=== PATIENT | male | born 1970 | race Caucasian/White ===

== ENCOUNTER 2018-08-31 06:05 | Day surgery (SDC) | payer OTHER ==
[~2018-08-31] VITALS: Ht 188 cm; Wt 107.5 kg
[~2018-08-31 06:05] MED LIST: ARNUITY ELLIP100 MCG INH; CELECOXIB100 MG PO; CHLORTHALIDONE25 MG PO; DULOXETINE HCL60 MG PO; FLONASE SENSIM5.9 ML NAS; OMEPRAZOLE20 MG PO; ULTRAM50 MG PO; VENTOLIN HFA18 GM INH; ZYRTEC10 M3 PO
[2018-08-31] MEDS ORDERED: CYMBALTA60 MG PO (06:18)
[2018-08-31] MEDS ORDERED: ASPIRIN325 MG PO (06:26)
[2018-08-31] MEDS ORDERED: ACETAMINOPHEN500 M1 PO (06:26)
[2018-08-31] MEDS ORDERED: ADVIL200 MG NG (06:26)
--- NOTE | 2018-08-31 08:52 | NUR ---
LE 0830 PT RETURNED FROM OR WIDE AWAKE WITH NO C/O'S. REPORT TAKEN FROM CHAYA MONTALVO. VITAL SIGNS TAKEN. IV DC'D. TIP INTACT. PIERREAN OVERSITE. TRANSPORT GUARDS AT BEDSIDE WHILE PT GETTING DRESSED. 0840 DC INSTRUCTIONS GIVEN. ALL QUESTIONS ANSWERED. LEFT VIA W/C WITH GUARDS.
--- NOTE | 2018-09-01 07:50 | OR ---
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 PROCEDURE: Right hip injection under fluoro. ANESTHESIA: Just local. SPECIMENS AND COMPLICATIONS: There were no specimens or complications. WHAT WAS DONE: The patient was taken to the operating room. The fluoroscopy machine was brought in and help us localize the epicenter of the hip joint. The patient was then prepped and draped in a routine sterile fashion. We raised a wheal with 1% xylocaine lateral to the neurovascular bundle. Under fluoroscopic control, we then advanced an 18-gauge spinal needle through the xylocaine wheal and directed it down into the hip. We confirmed in intra-articular location with fluoroscopy and then injected the hip with 8 mL of xylocaine and 2 mL of Depo-Medrol. The needle was withdrawn. A Band-Aid was applied and the patient was awakened and taken back to Day Surgery, where he arrived in stable condition. Counts were correct and the patient was completely comfortable. Dwight Joyner MD WFB/MODL /[id number] Electronically Signed By: DWIGHT JOYNER MD 09/01/18 0750 PATIENT NAME: BAMBI GATES OPERATIVE REPORT DATE OF : 72 REPORT #: [id number] PHYSICIAN: DWIGHT JOYNER MD PCP: EMILIA SALAZAR REPORT IS CONFIDENTIAL AND NOT TO BE RELEASED WITHOUT AUTHORIZATION [facility] [address] [place] [id number] Signed Copies: ~ Electronically Signed By: DWIGHT JOYNER MD 09/01/18 0750 PATIENT NAME: BAMBI GATES OPERATIVE REPORT DATE OF : 72 REPORT #: [id number] PHYSICIAN: DWIGHT JOYNER MD PCP: EMILIA SALAZAR REPORT IS CONFIDENTIAL AND NOT TO BE RELEASED WITHOUT AUTHORIZATION
== END 2018-08-31 08:40 | disposition home or self-care (01) ==
LOC: DS 06:05
PROVIDERS: Orthopaedic Surgery
PROC: 3E0U33Z Introduction of Anti-inflammatory into Joints, Percutaneous Approach (ICD-10-PCS; 2018-08-31)
PROC: BW1CZZZ Fluoroscopy of Lower Extremity (ICD-10-PCS; 2018-08-31)
PROC: 3E0U3BZ Introduction of Anesthetic Agent into Joints, Percutaneous Approach (ICD-10-PCS; principal; 2018-08-31 11:45)
DX: M87.851 Other osteonecrosis, right femur (principal); M16.7 Other unilateral secondary osteoarthritis of hip; Z88.1 Allergy status to other antibiotic agents
CPT/HCPCS: 73501; J3301; J7120

== ENCOUNTER 2019-01-20 05:44 | Day surgery (SDC) | payer OTHER ==
[~2019-01-20] VITALS: Ht 188 cm; Wt 107.5 kg
--- NOTE | ~2019-01-20 | OR ---
[facility] [address] [place], [place] [address] Draft DATE OF OPERATION: 01/20/2019 SURGEON: Dwight Joyner MD PREOPERATIVE DIAGNOSIS: End-stage osteoarthritis/avascular necrosis, right hip. POSTOPERATIVE DIAGNOSIS: End-stage osteoarthritis/avascular necrosis, right hip. PROCEDURE: Steroid injection, right hip, under fluoroscopy. ANESTHESIA: Local. SPECIMENS: None. COMPLICATIONS: None. WHAT WAS DONE: The patient was taken to the operating room. After localization of the hip with fluoroscopy, the patient was prepped and draped in a routine sterile fashion. A small Xylocaine wheal was raised anterolateral to the hip and an anesthetic tract was created down to the hip. Then, under fluoroscopic control, we introduced the spinal needle anterolaterally and directed it into the hip joint. The hip was then injected with 8 mL of 1% plain Xylocaine and 2 mL of Depo-Medrol, which the patient tolerated well. The needle was withdrawn, a Band-Aid was applied, and he was returned to Day Surgery. Documentary fluoroscopic images were saved. Dwight Joyner MD WFB/MODL /[id number] PATIENT NAME: BAMBI GATES OPERATIVE REPORT DATE OF : 72 REPORT #: [id number] PHYSICIAN: DWIGHT JOYNER MD PCP: EMILIA SALAZAR REPORT IS CONFIDENTIAL AND NOT TO BE RELEASED WITHOUT AUTHORIZATION [address] [place] [address] Draft Copies: ~ PATIENT NAME: BAMBI GATES KRYSTIN OPERATIVE REPORT DATE OF : 72 REPORT #: [id number] PHYSICIAN: DWIGHT JOYNER MD PCP: EMILIA SALAZAR REPORT IS CONFIDENTIAL AND NOT TO BE RELEASED WITHOUT AUTHORIZATION
[~2019-01-20 05:44] MED LIST changes: +ACETAMINOPHEN500 M1 PO; +ADVIL200 MG NG; +ASPIRIN325 MG PO; +CYMBALTA60 MG PO
[2019-01-20] MEDS ORDERED: LISINOPRIL10 MG PO (05:53)
--- NOTE | 2019-01-20 07:47 | NUR ---
LE 0735-PT RETURNS FROM OR TO . PT DID NOT RECEIVE ANY ANESTHETICS OR MEDICATIONS. REPORT RECEIVED FROM ELKIN LARKIN. PT PROVIDED WITH WATER. PT READY FOR DISCHARGE.
--- NOTE | 2019-01-20 08:01 | NUR ---
PT RESTING, ALERT, ORIENTED AND EOCI GUARDS AT BS. PT HAS HAD PROCEDURE BEFORE AND HAS HAD GOOD RESULTS. HAD NO QUESTIONS, EXTENDED A BLESSING,WILL FOLLOW NEEDED
== END 2019-01-20 07:50 | disposition home or self-care (01) ==
LOC: DS 05:44 → OPS 05:44 → DS 06:45 → OPS 07:50
PROVIDERS: Orthopaedic Surgery
PROC: 3E0U33Z Introduction of Anti-inflammatory into Joints, Percutaneous Approach (ICD-10-PCS; 2019-01-20)
PROC: BW1CYZZ Fluoroscopy of Lower Extremity using Other Contrast (ICD-10-PCS; 2019-01-20)
PROC: 3E0U3BZ Introduction of Anesthetic Agent into Joints, Percutaneous Approach (ICD-10-PCS; principal; 2019-01-20 06:45)
DX: M16.11 Unilateral primary osteoarthritis, right hip (principal); Z88.1 Allergy status to other antibiotic agents
CPT/HCPCS: 73501; J1040; J3301